=== PATIENT | female | born 1995 | race Caucasian/White ===

== ENCOUNTER → 2020-12-18 15:26 | Outpatient (CLI) | payer BC, SELFPAY ==
--- NOTE | ~2020-12-18 | XR_ITS ---
XR_[id number]_CR DATE: 12/18/2020 16:05 INDICATION: Neck and mid back pain TECHNIQUE: AP, open-mouth, lateral, swimmer views COMPARISON: None FINDINGS: There is reversal of cervical curvature which may indicate spasm. There is minimal dextrosc oliosis. Bilateral cervical ribs are noted. No fracture or dislocation or locked facet or prevertebral soft tissue swelling. C1 and C2 are normal ly aligned and the odontoid process is intact. The cervical interspaces appear relatively well preser [id number]. IMPRESSION: Bilateral cervical ribs Reversal cervical curvature and minimal dextroscoliosis Reviewed, dictated and finalized at [facility]. Reviewed, dictated and finalized at [facility].
--- NOTE | ~2020-12-18 | XR_ITS ---
XR lumbar spine 2-3V DATE: 12/18/2020 16:08 INDICATION: Back pain TECHNIQUE: Standing AP, lateral and coned lateral lumbosacral views COMPARISON: None FINDINGS: Minimal levoscoliosis of the lumbar spine. No fracture or bone destruction or spondylolisthesis. Lumbar and lumbosacral interspaces are well pre served. The lumbar pedicles are intact. The sacroiliac joints appear normal. IMPRESSION: Minimal levoscoliosis Reviewed, dictated and finalized at [facility]. IMPRESSION: Minimal levoscoliosis
--- NOTE | ~2020-12-18 | XR_ITS ---
XR thoracic spine 2V DATE: 12/18/2020 16:08 INDICATION: Mid back pain TECHNIQUE: AP, lateral, swimmer views COMPARISON: None FINDINGS: Bilateral cervical ribs. There is mild levoscoliosis of the upper thoracic spine, mild dext ro scoliosis of the midthoracic spine and minimal levoscoliosis of the lower thoracic spine. No fracture or dislocation or bone destruction or paraspinal soft tissue thickening. The thoracic. Pe dicles are intact. IMPRESSION: Mild thoracic scoliosis Bilateral cervical ribs Reviewed, dictated and finalized at [facility].
== END ==
PROVIDERS: Visit Provider Chiropractor
DX: M54.2 Cervicalgia (principal); M41.9 Scoliosis, unspecified; M54.5 Low back pain
CPT/HCPCS: 72040; 72070; 72100